=== PATIENT | female | born 1940 | race Caucasian/White ===

== ENCOUNTER 2017-05-11 13:23 | Emergency (ER) | payer OTHER, BC ==
[2017-05-11 13:30] VITALS: TEMP 98.7; BMI 30.1
--- NOTE | 2017-05-11 15:35 | PDOC ---
Attending Attestation - Resident Resident Name: CaioNavjot - ED Attending Attestation I have performed the following: I have examined & evaluated the patient, The case was reviewed & discussed with the resident, I agree w/resident's findings & plan, Exceptions are as noted - HPI HPI: 05/11/17 15:38 77y F hx of hypothyroidism, htn, hl presents with a complaint of 2 weeks of intermittent leg swelling and knee pain. The pt states she had some pain there 2 weeks ago, saw her ortho, had xrays and was started on a NSAID for her pain. She was doing ok until last night when her pain got worse and there was some swelling mostly in the medial knee, proximal RLE. Ther is no associated cough, sob, hemoptysis, fevers/chills, no injuries/falls recently. on exam the pt has mild diffuse tenderness no the medial posterior aspect of her knee especially when we range her knee to approx >150 degrees. hard to termine wherther there is an effusion due to her anatomy no erythema, warmth, induration neg homans sign suspect arhtritis w/ effusion will defer xray as she had it 2 weeks ago pt declines pain meds if US negative for dvt, she will be dc to fu with ortho - Physicial Exam PE: 05/12/17 08:27 see above - Medical Decision Making 05/12/17 08:27 see above Heart Score/ECG Review - ECG Impressions Comment:: 05/11/17 17:52 Twelve-lead EKG was performed and reviewed by me. There is normal sinus rhythm with a normal rate. rate of 100 The axis is normal. The intervals are normal. There is normal R wave progression There are no ST or T wave abnormalities. Impression: Normal twelve-lead EKG
--- NOTE | 2017-05-11 15:36 | PDOC ---
History of Present Illness - General Chief Complaint: Edema Stated Complaint: SWOLLEN LEGS, BACK PAIN Time Seen by Provider: 05/11/17 14:36 History Source: Patient Exam Limitations: No Limitations - History of Present Illness Initial Comments: 05/11/17 15:35 The patient is a 77F with a PMH of HTN, osteoarthritis, spinal stenosis (s/p lumbar surgery) and depression who presents to the ER with complaints of leg swelling. The patient states that her legs swelled up 2 weeks ago then resolved. She went to her PCP and had XR's done of b/l knees which were negative. The swelling then resolved. Overnight, she noticed her L leg swelling and then her R leg began to swell as well and she presented to the ER. The swelling is associated w/ LBP. Past History - Past Medical History Allergies/Adverse Reactions: Allergies Allergy/AdvReac Type Severity Reaction Status Date / Time codeine AdvReac Intermediate Nausea Verified 05/11/17 13:25 SEASONAL Allergy Intermediate NASAL Uncoded 05/11/17 13:25 CONGESTION Home Medications: Ambulatory Orders Clonazepam [KlonoPIN] 0.5 mg PO HS PRN 04/29/11 Zolpidem Tartrate [Ambien] 10 mg PO HS PRN 07/07/11 Levothyroxine [Synthroid -] 88 mcg PO DAILY 01/27/13 Atorvastatin Ca [Lipitor] 40 mg PO HS 05/11/17 Duloxetine HCl [Cymbalta] 60 mg PO DAILY 05/11/17 Losartan/Hydrochlorothiazide [Losartan-Hctz 100-25 mg Tab] 1 each PO DAILY 05/11 Omeprazole 20 mg PO DAILY 05/11/17 Tamoxifen Citrate 20 mg PO DAILY 05/11/17 Anemia: No Asthma: No Cancer: Yes (RIGHT BREAST) Cardiac Disorders: No CVA: No COPD: No CHF: No DVT: No Dementia: No Diabetes: No GI Disorders: No Disorders: No HTN: Yes Hypercholesterolemia: Yes (NOT ON MEDS) Liver Disease: No Seizures: No Thyroid Disease: Yes Other medical history: ALAMO DISEASE - Surgical History Abdominal Surgery: No Appendectomy: No Cardiac Surgery: No Cholecystectomy: No Lung Surgery: No Neurologic Surgery: No Orthopedic Surgery: Yes (Left Knee Replacement,Fahad Carpal Tunnel Release) - Suicide/Smoking/Psychosocial Hx Smoking History: Never smoked Have you smoked in the past 12 months: No Hx Alcohol Use: No Drug/Substance Use Hx: No Substance Use Type: None Hx Substance Use Treatment: No Review of Systems - Review of Systems Able to Perform ROS?: Yes Comments:: 05/11/17 17:00 GENERAL/CONSTITUTIONAL: No fever or chills. No weakness. HEAD, EYES, EARS, NOSE AND THROAT: No change in vision. No ear pain or discharge. No sore throat. CARDIOVASCULAR: No chest pain, palpitations, or lightheadedness. RESPIRATORY: No cough, wheezing, shortness of breath, or hemoptysis. GASTROINTESTINAL: No nausea, vomiting, diarrhea, constipation, or abdominal pain. GENITOURINARY: No dysuria, frequency, hematuria, or change in urination. MUSCULOSKELETAL: Positive for low back pain, b/l leg swelling. No joint or muscle swelling or pain. SKIN: No rash or lesions. NEUROLOGIC: No headache, numbness, tingling, weakness, loss of consciousness, or change in strength/sensation. ENDOCRINE: No increased thirst. No abnormal weight change. HEMATOLOGIC/LYMPHATIC: No anemia, easy bleeding, or history of blood clots. ALLERGIC/IMMUNOLOGIC: No hives or skin allergy. Is the patient limited Portuguese proficient: No *Physical Exam - Vital Signs Last Vital Signs Temp Pulse Resp BP Pulse Ox 98.7 F 90 18 157/66 05/11/17 13:25 05/11/17 13:25 05/11/17 13:25 05/11/17 13:25 - Physical Exam Comments: 05/11/17 17:01 GENERAL: Well developed, well nourished. Awake and alert. No acute distress. HEENT: Normocephalic, atraumatic. Hearing grossly normal. Moist mucous membranes. PERRLA, EOMI. No conjunctival pallor. Sclera are non-icteric. NECK: Supple. Full ROM. No JVD. CARDIOVASCULAR: Regular rate and rhythm. No murmurs, rubs, or gallops. PULMONARY: No evidence of respiratory distress. Lungs clear to auscultation bilaterally. No wheezing, rales or rhonchi. ABDOMINAL: Soft. Non-tender. Non-distended. No rebound or guarding. GENITOURINARY: No CVA tenderness bilaterally. MUSCULOSKELETAL: B/l trace edema. Tenderness to palpation in posterior L knee. EXTREMITIES: No cyanosis. No clubbing. No calf tenderness. SKIN: Warm and dry. Normal capillary refill. No rashes. No jaundice. NEUROLOGICAL: Alert, awake, appropriate. Cranial nerves 2-12 intact. Normal speech. Gait is normal without ataxia. PSYCHIATRIC: Cooperative. Good eye contact. Appropriate mood and affect. ED Treatment Course - LABORATORY CBC & Chemistry Diagram: 05/11/17 16:40 05/11/17 16:40 Medical Decision Making - Medical Decision Making 05/11/17 17:02 The patient is a 77F who presents with b/l leg swelling. I am concerned for DVT but other causes can be cardiogenic, hepatic, and nephro causes of leg swelling. Pending labs and imaging. Will monitor closely. 05/11/17 18:27 US DVT: Impression: No DVT is identified involving either leg. Informed pt to f/u with PCP. *DC/Admit/Observation/Transfer Diagnosis at time of Disposition: Swelling of joint of lower leg - Discharge Dispostion Disposition: HOME Condition at time of disposition: Stable Admit: No - Referrals Referrals: Manasa Brown MD [Primary Care Provider] - Braden Moeller MD [Staff Physician] - - Patient Instructions Printed Discharge Instructions: Osteoarthritis Additional Instructions: Please return to the ER if symptoms persist, worsen, or new symptoms arise. Please follow up with your primary care physician in 2-3 days. Your study for deep venous thrombosis were negative. Please return to the ER if you have any signs or symptoms of chest pain, shortness of breath, uncontrollable fever, chills, nausea, vomiting, numbness, tingling, or weakness in any part of your body, changes in vision, or slurred speech. - Post Discharge Activity
[2017-05-11 16:51] LABS: BASO % 0.3 % (0-2.0); EOS % 0.8 % (0-4.5); HEMATOCRIT 36.6 % (32.4-45.2); LYMPH % 8.8 % (8-40); MCH 27.3 pg (25.7-33.7); MCHC 32.7 g/dl (32.0-36.0); MEAN CELL VOLUME 83.4 fl (80-96); MEAN PLT VOLUME 8.2 fl (7.5-11.1); MONO % 6.1 % (3.8-10.2); PLATELET COUNT 274 K/MM3 (134-434); RBC 4.39 M/mm3 (3.60-5.2); RDW 13.6 % (11.6-15.6); URINE APPEARANCE CLEAR; URINE BILIRUBIN NEGATIVE (NEGATIVE); URINE BLOOD NEGATIVE (NEGATIVE); URINE COLOR YELLOW; URINE GLUCOSE (UA) NEGATIVE (NEGATIVE); URINE KETONE NEGATIVE (NEGATIVE); URINE LEUK ESTERASE NEGATIVE (NEGATIVE); URINE NITRITE NEGATIVE (NEGATIVE); URINE PROTEIN NEGATIVE (NEGATIVE); URINE UROBILINOGEN 0.2 mg/dL (0.2-1.0); WHITE BLOOD COUNT 17.1 K/mm3 (4.0-10.0)
[2017-05-11 17:09] LABS: INR 1.05 (0.82-1.09); PROTHROMBIN TIME (PATIENT) 11.9 SEC (9.98-11.88)
[2017-05-11 17:11] LABS: ACTIVATED PTT 30.8 SECONDS (26.9-34.4)
[2017-05-11 18:07] LABS: ALBUMIN 3.2 g/dl (3.4-5.0); ANION GAP 10 (8-16); BILIRUBIN,TOTAL 0.4 mg/dL (0.2-1.0); BLOOD UREA NITROGEN 19 mg/dL (7-18); CALCIUM 8.7 mg/dL (8.5-10.1); CHLORIDE 102 mmol/L (98-107); CO2 27 mmol/L (21-32); CREATININE 0.8 mg/dL (0.55-1.02); GLUCOSE,RANDOM 87 mg/dL (74-106); POTASSIUM 3.4 mmol/L (3.5-5.1); SGOT/AST 20 U/L (15-37); SODIUM 139 mmol/L (136-145); TOT PROT 6.6 g/dl (6.4-8.2)
[2017-05-11 18:08] LABS: ALK PHOS 75 U/L (45-117); SGPT/ALT 29 U/L (12-78)
[2017-05-11 18:44] VITALS: BP 127/56; PULSE 87
--- NOTE | 2017-05-13 11:29 | EKG ---
Test Reason : Blood Pressure : / mmHG Vent. Rate : 100 BPM Atrial Rate : 100 BPM P-R Int : 150 ms QRS Dur : 068 ms QT Int : 358 ms P-R-T Axes : 066 000 033 degrees QTc Int : 461 ms NORMAL SINUS RHYTHM NORMAL ECG WHEN COMPARED WITH ECG OF 20-OCT-2000 12:36, VENT. RATE HAS INCREASED BY 35 BPM QT HAS LENGTHENED Confirmed by PROSPER RESTREPO, KIMMY ([id number]) on 05/13/2017 11:29:00 AM Referred By: Confirmed By:KIMMY CHENG MD
== END 2017-05-11 18:44 | disposition home or self-care (01) ==
LOC: JER 13:23
DX: M25.462 Effusion, left knee (principal); M25.461 Effusion, right knee; I10 Essential (primary) hypertension; E78.00 Pure hypercholesterolemia, unspecified; E03.9 Hypothyroidism, unspecified; M19.90 Unspecified osteoarthritis, unspecified site; Z96.652 Presence of left artificial knee joint; Z85.3 Personal history of malignant neoplasm of breast
CPT/HCPCS: 36415; 80053; 81003; 85025; 85610; 85730; 93005; 93010; 93970-TC; 99284-25